=== PATIENT | female | born 1980 | race Caucasian/White ===

== ENCOUNTER 2022-09-03 10:23 | Emergency (ER) | payer OTHER, MEDICAID ==
[2022-09-03 10:39] VITALS: BP 142/78; PULSE 89
[2022-09-03] MEDS ORDERED: Bacitracin Oint 1 GM U/D Packet TOP ONE (10:41)
[2022-09-03] MEDS ORDERED: Lidocaine 1% 5 ML VIAL INJECT ONE (10:41)
== END 2022-09-03 11:25 | disposition home or self-care (01) ==
LOC: JP.ED 10:23
DX: S61.211A Laceration without foreign body of left index finger without damage to nail, initial encounter (principal); Z88.8 Allergy status to other drugs, medicaments and biological substances; W23.0XXA Caught, crushed, jammed, or pinched between moving objects, initial encounter
CPT/HCPCS: 12001; 99282

== ENCOUNTER 2022-09-10 18:02 | Emergency (ER) | payer OTHER, MEDICAID ==
[2022-09-10 18:19] VITALS: BP 137/55; PULSE 87
== END 2022-09-10 19:11 | disposition home or self-care (01) ==
LOC: JP.ED 18:02
DX: T81.41XA Infection following a procedure, superficial incisional surgical site, initial encounter (principal); S61.211S Laceration without foreign body of left index finger without damage to nail, sequela; Z88.8 Allergy status to other drugs, medicaments and biological substances
CPT/HCPCS: 99282